=== PATIENT | male | born 1960 | race Caucasian/White ===

== ENCOUNTER 2021-07-12 15:18 | Emergency (ER) | payer OTHER ==
[~2021-07-12] VITALS: Ht 180.3 cm; Wt 81.2 kg
[2021-07-12 16:13] VITALS: BP 139/79
--- NOTE | 2021-07-12 16:14 | NUR ---
Patient discharged to home in stable condition. Written and verbal after care instructions given. Patient verbalizes understanding of instruction.
== END 2021-07-12 16:14 ==
LOC: ER 15:23
DX: T65.891A Toxic effect of other specified substances, accidental (unintentional), initial encounter (principal); H57.89 Other specified disorders of eye and adnexa; I10 Essential (primary) hypertension; E78.5 Hyperlipidemia, unspecified; Y92.89 Other specified places as the place of occurrence of the external cause